=== PATIENT | male | born 1945 | race Caucasian/White ===

== ENCOUNTER 2017-10-21 08:17 | Day surgery (SDC) | payer MEDICARE, OTHER ==
[~2017-10-21 08:17] MED LIST: LIDOCAINE HCL 1% MPF 30 SOL ONE; PROPOFOL 500 MG/50 ML EMU IV ONE
[2017-10-21 09:55] VITALS: TEMP 97
[2017-10-21 09:58] VITALS: RESP 14
[2017-10-21 10:06] VITALS: BP 109/61; PULSE 55; O2SAT 97
== END 2017-10-21 10:44 | disposition home or self-care (01) | DRG 951 ==
LOC: SURG 08:17
PROVIDERS: ATTEND Surgery
DX: Z12.11 Encounter for screening for malignant neoplasm of colon (principal); K62.1 Rectal polyp
CPT/HCPCS: J2001; J2704